=== PATIENT | male | born 1970 | race Caucasian/White ===

== ENCOUNTER 2025-01-21 06:58 | Outpatient (CLI) | payer OTHER, SELFPAY ==
--- NOTE | 2025-01-21 07:15 | MR_ITS ---
[address] [address] Phone:?[phone] Fax:?[phone] Referring Physician Information: Antonino Gastelum M.D. [address] [facility] [address] Phone:?[phone] Fax:?[phone] Patient:Byron Jaquez D.O.B:?1970 Sex:?Male Phone:?[phone] [facility] MRN:?[id number] Exam Date:?01/21/2025 EXAM: MRI of the RIGHT SHOULDER without contrast CLINICAL: Evaluate for rotator cuff tear. COMPARISONS: X-rays dated 01/17/2025. TECHNICAL: Multiplanar multisequence MRI of the right shoulder was obtained. SEDATION: None. CONTRAST: None. FINDINGS: Rotator cuff: Supraspinatus/Infraspinatus: There is moderate tendinosis of the distal supraspinatus and infraspinatus tendons. There is partial interstitial insertional tearing of the distal supraspinatus tendon extending into the junction with the anterior distal infraspinatus tendon as seen on coronal series 5 image 13-15 involving up to 65-70% of the tendon thickness on image 13. No significant fatty atrophy of the muscles. Teres minor: No tendinosis, tear or atrophy. Subscapularis: Suspect mild thin linear partial interstitial insertional tearing of the distal tendon on axial series 4 image 17. No significant fatty atrophy of the muscle. Bursae: Subacromial-subdeltoid: No significant bursal fluid. Subcoracoid: Mild to moderate bursal fluid. Coracoacromial arch: Acromion morphology: Type II. No os acromiale. Acromiohumeral space: Within normal limits. Coracohumeral space: Within normal limits. Biceps tendon, long head: No tendinosis, tendon tear or displacement. Glenohumeral joint: No significant joint effusion. Articular cartilage: There is high-grade/full-thickness chondral loss involving the superior and superomedial humeral head. Small segment of high-grade/full-thickness chondral involves the superior glenoid on coronal series 5 image 17. Capsule: No evidence of capsular thickening or injury. Labrum: There is mild irregularity/fraying involving the superior labrum. Remainder of the glenoid labrum appears intact as visualized on this nonarthrographic exam. No perilabral cyst identified. Bones: There is osseous cystic change involving the greater tuberosity of the proximal humerus adjacent to the distal rotator cuff tendon attachment. There is mild degenerative peripheral marginal spurring involving the glenohumeral joint. No evidence of acute fracture and no dislocation. Acromioclavicular joint: No acute injury or significant arthrosis. IMPRESSION: 1. Mild tendinosis of the distal supraspinatus and infraspinatus tendons with superimposed partial interstitial insertional tearing of the distal supraspinatus tendon extending into the junction with the anterior distal infraspinatus tendon as above. 2. Suspect mild thin linear partial interstitial insertional tearing of the distal subscapularis tendon. 3. Glenohumeral osteoarthritis/chondral loss as above. Mild irregularity/fraying of the superior labrum. 4. Mild to moderate subcoracoid bursitis. JCZ Electronically signed on 01/21/2025 9:07:00 AM by Puneet Conrad D.O.
== END 2025-01-21 06:59 | disposition home or self-care (01) ==
LOC: MRI 06:59
PROVIDERS: Visit Provider Orthopaedic Surgery
DX: M75.101 Unspecified rotator cuff tear or rupture of right shoulder, not specified as traumatic (principal); M19.011 Primary osteoarthritis, right shoulder; M75.51 Bursitis of right shoulder
CPT/HCPCS: 73221

== ENCOUNTER 2025-02-10 10:45 | Outpatient (CLI) | payer OTHER, SELFPAY | END 2025-02-10 10:46 | disposition home or self-care (01) | LOC: CT 10:45 | PROVIDERS: PCP Family Medicine; Visit Provider Physician Assistant | DX: M75.51 Bursitis of right shoulder (principal); M19.011 Primary osteoarthritis, right shoulder; M67.813 Other specified disorders of tendon, right shoulder | CPT/HCPCS: 73200 ==

== ENCOUNTER 2025-02-16 11:29 | Outpatient (CLI) | payer OTHER, SELFPAY | END 2025-02-16 11:30 | disposition home or self-care (01) | PROVIDERS: PCP Family Medicine; Visit Provider Family Medicine | DX: Z01.818 Encounter for other preprocedural examination (principal) | CPT/HCPCS: 80048; 85025 ==

== ENCOUNTER 2025-03-14 07:08 | Day surgery (SDC) | payer OTHER, SELFPAY ==
[2025-03-14] VITALS (17 sets, daily range): BP systolic 110–131; BP diastolic 64–93; PULSE 56–70; RESP 12–16; TEMP 36.2–36.9; O2SAT 92–98; BMI 34.2
--- NOTE | 2025-03-14 08:03 | W.PM.H&PU ---
History & Physical Update History & Physical Update H&P Reviewed and patient assessed: No changes noted
[2025-03-14] MEDS: OXYCODONE (CR) 10 MG TAB.ER.12H PO (08:15)
[2025-03-14] MEDS: LACTATED RINGERS 1000 ML 1,000 ML 100 ML IV ×2 (08:15→10:30)
[2025-03-14] MEDS: ACETAMINOPHEN 500 MG TABLET 1000 MG PO (08:15)
[2025-03-14] MEDS: SODIUM CHLORIDE 0.9 % (FLUSH) 10 ML SYRINGE IVF (08:15)
[2025-03-14] MEDS: SCOPOLAMINE 1 MG/3 DAY PATCH 1 PATCH TRANSDERMA (09:04)
[2025-03-14] MEDS: MIDAZOLAM HCL 1 MG/ML inj IVP (09:05)
--- NOTE | 2025-03-14 09:21 | SUR.PREOP ---
TIME?OUT:?04 PT/RN/MDA?VERIFICATION?OF?SURGICAL?SITE,?PROCEDURE,?AND?CONSENT OBTAINED?PRIOR?TO?INVASIVE?PROCEDURE.
[2025-03-14] MEDS: TRANEXAMIC ACID 100 MG/ML INJ 1000 MG IV (09:39)
[2025-03-14] MEDS: LACTATED RINGERS 1000 ML 1,000 ML 125 ML IV (10:30)
--- NOTE | 2025-03-14 11:24 | P.ANES_ITS ---
Anesthesia Charges Start Date/Time Anesthesia Start Date: 03/14/25 Anesthesia Start Time: 09:15 Stop Date/Time Anesthesia Stop Date: 03/14/25 Anesthesia Stop Time: 11:58 Coding CPT Codes CPT Codes: ANESTH SHOULDER REPLACEMENT - 12692 ([id number]) P2 - PATIENT W/MILD SYST DISEASE, QK - SYSTEMS ENG 2-4 CNCRNT ANES PROC, QX - DRUG ABUSE TECHNICIAN SVC W/ MD MED DIRECTION
--- NOTE | 2025-03-14 11:24 | W.ANESCHARGE ---
Anesthesia Charges Start Date/Time Anesthesia Start Date: 03/14/25 Anesthesia Start Time: 09:15 Stop Date/Time Anesthesia Stop Date: 03/14/25 Anesthesia Stop Time: 11:58 Coding CPT Codes CPT Codes: ANESTH SHOULDER REPLACEMENT - 18965 ([id number]) P2 - PATIENT W/MILD SYST DISEASE, QK - KILN TESTER 2-4 CNCRNT ANES PROC, QX - RECEPTION AGENT SVC W/ MD MED DIRECTION
--- NOTE | 2025-03-14 11:24 | W.PM.NB ---
Nerve Block Nerve Block Time Seen by Provider: 09:05 Date Seen: 03/14/25 Type of block requested by surgeon for post-operative analgesia: supraclavicular Side: right Time out performed: Yes Verification of patient name: Yes Verification of date of : Yes Site marking: site marked Name of person performing procedure: Eliazar Continuous monitoring Was continuous monitoring of O2 sat, B/P, stave cutting supervisor, recorded every 15 minutes?: Yes Procedure Checklist: sterile prep, needles and gloves Ultrasound guided. Images saved: Yes Medications given in 5ml increments after negative aspiration: Ropivicaine %: 0.5 mL: 15 Needle gauge: 22 Precedex (mcg): 25 Patient tolerated procedure well: Yes Block Charges Block Charge (with Pro Fee): Brachial Plexus Use of Ultrasound Machine for Block: Yes- US Guidance/pain block
--- NOTE | 2025-03-14 11:38 | PM.ORPRC ---
Procedure Note Date of procedure: 03/14/25 Procedure: PREOPERATIVE DIAGNOSIS: 1. Right shoulder osteoarthrosis, primary, severe POSTOPERATIVE DIAGNOSIS: 1. Right shoulder osteoarthrosis, primary, severe 2. Right shoulder long head of biceps tendinopathy / tenosynovitis PROCEDURE: 1. Right total shoulder arthroplasty-anatomic. 2. Right shoulder long head of biceps open tenodesis SURGEON: Guille Suazo MD. POTATO LOADER: Jac GLASS - Of note, a skilled urology physician assistant was critical for this case to aid in patient positioning, tissue retraction, limb manipulation/positioning, awareness of and protection of critical structures, and closure. ANESTHESIA: General plus interscalene block EBL: 200 mL IMPLANTS: [employer] INHANCE components Large Blazer. 46 x 16 mm centered humeral head with askew taper adapter/connector for head to blazer; Large glenoid component (cemented ring) - metal central peg COMPLICATIONS: None evident INDICATIONS: The patient is a pleasant 55-year-old male who has experienced severe right shoulder pain and difficulty with use. Workup included x-rays which revealed severe osteoarthrosis. Physical exam was consistent with associated pain. Given the deformity, the dysfunction, and the pain, recommendation was made for surgery. FINDINGS: Full-thickness chondral loss diffusely throughout the humeral head. To lesser degree central glenoid. Large effusion upon entering the joint. Osteophyte formation on the inferior humeral head. Healthy/strong supraspinatus insertion. Subscapularis also with the healthy attachment. For long of the biceps tendon showed some thickening/Flattening with tenosynovitis. DESCRIPTION OF PROCEDURE: Following a thorough discussion of risks, benefits, and alternatives, consent was obtained and the left shoulder was marked. The patient was brought to the operating room and placed supine on the operating table. Induction of anesthesia was undertaken. 2 g IV Ancef and 1 g tranexamic acid was administered within 1 hr of incision preoperatively. Appropriate time-out was performed identifying proper patient, site, and procedure. The operative extremity was prepped and draped in the appropriate sterile fashion using ChloraPrep after the patient was positioned in the beach chair with head in neutral alignment and all bony prominences well padded. A longitudinal incision was made for deltopectoral approach. Deltoid and cephalic vein were retracted laterally but eventually the vein was cauterized due to a small rent in the vessel. The clavipectoral fascia was identified and divided longitudinally staying lateral to the conjoined tendon / coracoid. The conjoined tendon was protected with a blunt Hohmann. The long head of the biceps tendon was identified and found to have significant flattening, partial-thickness tearing, and significant tenosynovitis. The tenodesis was performed suturing it to the pectoralis major tendon at their confluence. The upper 1/4 of the pectoralis major was released from its insertion. The superior portion of the rotator cuff was inspected and found to have good integrity. The subscapularis was released from its lesser tuberosity via a tenotomy down through the 3 sisters which were cauterized. After releasing the subscapularis, the capsule was released from the inferior humeral neck allowing us to remove the inferior humeral head osteophyte. The subscapularis was also released from the superior glenohumeral ligament and middle glenohumeral ligament. It was then tucked into the subscapularis fossa anteriorly, and we turned our attention to the humeral preparation. The humerus was dislocated, and humeral head cut performed paying attention to the patient's unga version anatomy and consistet with the preop plan. The guide pin was drilled through the lateral humeral cortex, a Blazer trial consistent with the preop plan was applied, and the humerus was planed. The humerus was then protected with the Blazer and attention was turned to the glenoid preparation. The humerus was retracted posteriorly. The subscap was protected anteriorly and the labrum was released along the glenoid anterior, inferior and posteroinferior regions via combination of Bovie cautery or 15 blade. Based on the preoperative CT scan of the shoulder, the shoulder was found have approximately 5? of retroversion. The preop plan targeted a resting position of 2? retroversion upon completion of the glenoid prep. The 3D printed guide was applied, the guide pin was placed and the subsequent preparation performed with Reamer down to cortical/subchondral bone. Cement was mixed on the back table and filled the ring after thorough irrigation with normal saline was performed followed by suction and drying of the bone. The real implant was opened and inserted with excellent surrounding fit circumferentially. We then turned our attention back to the humerus. Consistent with the preop planning, the appropriate head was selected, trialed, and found have an excellent fixation and tension. 50% bounce-back was visualized with posterior directed force, internal rotation was achieved to 60? comfortably while the shoulder was abducted to 90?, and the conjoined tendon had good tension. At this stage, a 3 min Betadine soak was performed followed by a thorough irrigation with normal saline. Subscapularis was reapproximated with # 1 PDS (x4). The rotator interval was reapproximated with a suture tape (x2) as well. The deltopectoral interval was reapproximated with 0 Vicryl, subcutaneous and subcuticular closure was then performed with number 2-0 Vicryl and 4-0 Monocryl, respectively. A skilled urology physician assistant was critical for this case to aid in patient positioning, tissue retraction, bone exposure, limb manipulation/positioning, shoulder dislocation/relocation, patient safety, and closure. PLAN: 1. Sling much of the time to operative extremity. May come out of this for prescribed shoulder flexion to 90?, pendulums, and elbow/forearm/wrist/digit range of motion as tolerated. 2. OT consults to evaluate and treat along with education/assistance. 3. Tylenol, Ibuprofen, and/or Oxycodone for analgesics PRN. 4. Early ambulation encouraged.
--- NOTE | 2025-03-14 11:55 | CRLHL7_ITS ---
For Patients: As a result of the Cures Act, medical imaging exams and procedure reports are released immediately into your electronic medical record. You may view this report before your referring provider. If you have questions, please contact your health care provider. Indication: Shoulder replacement. Technique: Three views of the right shoulder. Comparison: None. Findings: New right shoulder arthroplasty. Expected postoperative soft tissue gas and swelling. Small right lung volume with mild right basilar atelectasis. Impression: New right shoulder arthroplasty. Dictated by Yomi Ludwig MD @ 03/14/2025 1:28:29 PM (Electronically Signed)
--- NOTE | 2025-03-14 11:59 | W.ANESCHARGE ---
Anesthesia Charges Start Date/Time Anesthesia Start Date: 03/14/25 Anesthesia Start Time: 09:15 Stop Date/Time Anesthesia Stop Date: 03/14/25 Anesthesia Stop Time: 11:58
--- NOTE | 2025-03-14 12:21 | P.ANES_ITS ---
Anesthesia Charges Start Date/Time Anesthesia Start Date: 03/14/25 Anesthesia Start Time: 09:15 Stop Date/Time Anesthesia Stop Date: 03/14/25 Anesthesia Stop Time: 11:58 Coding CPT Codes CPT Codes: ANESTH SHOULDER REPLACEMENT - 20412 ([id number]) P2 - PATIENT W/MILD SYST DISEASE, QK - DRIVER ENGINEER 2-4 CNCRNT ANES PROC
--- NOTE | 2025-03-14 12:21 | W.ANESCHARGE ---
Anesthesia Charges Start Date/Time Anesthesia Start Date: 03/14/25 Anesthesia Start Time: 09:15 Stop Date/Time Anesthesia Stop Date: 03/14/25 Anesthesia Stop Time: 11:58 Coding CPT Codes CPT Codes: ANESTH SHOULDER REPLACEMENT - 84780 ([id number]) P2 - PATIENT W/MILD SYST DISEASE, QK - [facility] 2-4 CNCRNT ANES PROC
[2025-03-14] MEDS: IBUPROFEN 200 MG TABLET 600 MG PO (15:00)
== END 2025-03-14 15:35 | disposition home or self-care (01) ==
LOC: OR 07:08
PROVIDERS: PCP Family Medicine; Visit Provider Orthopaedic Surgery Sports Medicine
PROC: 0RRJ0JZ Replacement of Right Shoulder Joint with Synthetic Substitute, Open Approach (ICD-10-PCS; CPT 23472; principal; 2025-03-14 09:15)
DX: M19.012 Primary osteoarthritis, left shoulder (principal); M75.21 Bicipital tendinitis, right shoulder; G89.18 Other acute postprocedural pain
CPT/HCPCS: 23472; 23430; 01638; 64415; 73030; 76942; 97110; 97165; 97535; A9270; C1776; J0330; J0690; J1100; J2250; J2371; J2405; J2704; J2710; J2795; J3010; J7120